=== PATIENT | female | born 1995 | race Caucasian/White ===

== ENCOUNTER 2017-07-09 16:55 | Observation (INO) ==
--- NOTE | 2017-07-09 19:31 | OB/GYN Progress Note ---
Date of Encounter: 07/09/17 Time of Encounter: 19:18 - Assessment and Plan (1) 38 weeks gestation of Current Visit: Yes Status: Acute (2) Pelvic pain affecting Current Visit: Yes Status: Acute Patient with rare uterine contraction noted on monitor. Cervix unchanged on serial cervical exams. NST reactive tracing. Discharged home with labor and when to return to triage precautions Qualifiers: Trimester: third trimester Qualified Code(s): O26.893 - Other specified related conditions, third trimester; R10.2 - Pelvic and perineal pain ; R10.2 - Pelvic and perineal pain Subjective - Subjective Interval history: 38+3 weeks gestation presents to triage with complaints of lower pelvic pain, decreased movement. States she has been having lower back and pelvic pain over the last few days, has increased this evening. Patient states she also feels she has had increased discharge and has been leaking fluid over the last couple days. Antepartum ROS: loss of fluid, contractions, no vaginal bleeding, no movement normal Objective - Vital Signs Vital Signs: Intake and Output 07/09/17 07/09/17 07/09/17 07:59 15:59 23:59 Other: Weight 55.5 kg Patient Weight 07/09/17 23:59 Weight 55.5 kg - Exam FHR: auscultation normal FHR comments: baseline 125 Auscultation: bilateral: normal Abdomen: Present: normal appearance, soft, gravid Uterus: Present: normal Cervical dilation: 50/-2
[2017-07-09 20:19] LABS: Amphetamine Screen,Urine Negative ng/mL (Cutoff=1000); Barbiturate Screen,Urine Negative ng/mL (Cutoff=200); Benzodiazepines Screen,Urine Negative ng/mL (Cutoff=200); Cannabinoid Screen,Urine Negative ng/mL (Cutoff = 50); Cocaine Screen,Urine Negative ng/mL (Cutoff= 300); Opiate Screen,Urine Negative ng/mL (Cutoff=300); Phencyclidine Screen,Urine Negative ng/mL (Cutoff=25)
== END 2017-07-09 20:09 | disposition home or self-care (01) ==
LOC: 1NENULAB
PROVIDERS: ADMIT Advanced Practice Midwife; ATTEND Advanced Practice Midwife

== ENCOUNTER 2017-07-12 18:47 | Inpatient (IN) ==
--- NOTE | 2017-07-12 17:16 | OB/GYN Progress Note ---
Date of Encounter: 07/12/17 Time of Encounter: 17:12 - Assessment and Plan (1) Encounter for suspected PROM, with rupture of membranes not found Current Visit: Yes Status: Acute Rupture membranes not found, nitrazine negative, ferning negative. However patient has made some cervical change from 4-5 cm Will admit patient to labor and delivery must start GBS prophylaxis, and induce labor at midnight when patient is 39+0. See H&P note (2) 38 weeks gestation of Current Visit: No Status: Acute Subjective - Subjective Interval history: 30s +6 weeks gestation presents to triage for evaluation of rupture of membranes. She states approximately 3 hours ago she was using the bathroom and felt a pop and has been trickling some fluid ever since the patient's sister encouraged her to come to triage evaluation, patient feels she is just leaking urine. Patient states decreased movement since this morning, denies vaginal bleeding Antepartum ROS: loss of fluid, contractions, no vaginal bleeding, no movement normal Objective - Vital Signs Vital Signs: Intake and Output 07/12/17 07/12/17 07/12/17 07:59 15:59 23:59 Other: Weight 55.338 kg Patient Weight 07/12/17 23:59 Weight 55.338 kg - Exam FHR: auscultation normal FHR comments: baseline 130 Abdomen: Present: normal appearance, soft, gravid Cervical dilation: /-2
[2017-07-12 17:48] LABS: Bilirubin,Urine Negative (Negative); Blood,Urine Negative (Negative); Clarity,Urine Cloudy (Clear); Color,Urine Yellow (Yellow); Glucose,Urine (UA) Normal (Normal); Ketones,Urine Negative (Negative); Leukocyte Esterase,Urine Large (Negative); Nitrite,Urine Negative (Negative); Protein,Urine Trace mg/dL (Neg-Trace); Specific Gravity,Urine 1.025 (1.010-1.025); Urobilinogen,Urine Normal (Normal)
[2017-07-12 17:55] LABS: Amphetamine Screen,Urine Negative ng/mL (Cutoff=1000); Barbiturate Screen,Urine Negative ng/mL (Cutoff=200); Benzodiazepines Screen,Urine Negative ng/mL (Cutoff=200); Cannabinoid Screen,Urine Negative ng/mL (Cutoff = 50); Cocaine Screen,Urine Negative ng/mL (Cutoff= 300); Opiate Screen,Urine Negative ng/mL (Cutoff=300); Phencyclidine Screen,Urine Negative ng/mL (Cutoff=25)
[2017-07-12 18:04] LABS: Bacteria,Urine Many per hpf (None-Few); Hyaline Casts,Urine None Seen per lpf (None-Few); Squamous Epithelial Cell,Urine Many per lpf (None-Few); WBC,Urine 15-30 per hpf (0-3)
[~2017-07-12 18:47] MED LIST: Famotidine 20 MG/2 ML VIAL IVP PRN; Naloxone 0.4 MG/ML INJ IVP PRN; Ondansetron 4 MG/2 ML VIAL IVP PRN; Penicillin G Potassium 5,000,000 UNIT in 0.9 % Sodium Chloride Mini Bag 100 ML IVPB ONE
[2017-07-12 19:12] LABS: Basophils # 0.1 K/mcL (0.0-0.2); Basophils % 0.4 %; Eosinophils # 0.1 K/mcL (0.0-0.6); Eosinophils % 0.8 %; Hematocrit 39.3 % (35.3-44.9); Hemoglobin 13.2 g/dL (11.5-15.4); Immature Granulocytes % 0.6 % (0-4); Lymphocytes % 14.5 %; Mean Corpuscular HGB Conc 33.6 g/dL (31.6-35.5); Mean Corpuscular Hemoglobin 28.6 pg (28.0-33.3); Mean Corpuscular Volume 85.2 fL (83.0-100.0); Mean Platelet Volume 10.2 fL (9.4-12.4); Monocytes # 0.8 K/mcL (0.0-1.3); Monocytes % 5.9 %; Neutrophils # 10.9 K/mcL (1.6-8.9); Platelet Count 237 K/mcL (140-400); Red Blood Count 4.61 M/mcL (3.82-4.97); Red Cell Distribution Width 13.7 % (11.5-14.5); Segmented Neutrophils % 77.8 %
--- NOTE | 2017-07-12 19:20 | OB/GYN History & Physical ---
Date of Encounter: 07/12/17 Time of Encounter: 19:19 Assessment and Plan (1) Active labor at term Current visit: Yes Status: Acute Plan: - admit to L&D - NST reactive - obtain CBC and drug screen - begin Penicillin for GBS prophylaxis - expectant management will consider augmenting with AROM or pitocin if no cervical change at midnight. Plan of care discussed with Dr. Hidalgo - anticipate (2) 38 weeks gestation of Current visit: No Status: Acute (3) NST (non-stress test) reactive Current visit: Yes Status: Acute History of Present Illness Chief complaint: active labor HPI: Ms. Maxwell is a 22 year old female 30 +6 weeks gestation presents to triage for evaluation of rupture of membranes. She states approximately 3 hours ago she was using the bathroom and felt a pop and has been trickling some fluid ever since the patient's sister encouraged her to come to triage evaluation, patient feels she is just leaking urine. Patient states decreased movement since this morning, denies vaginal bleeding. is complicated by limited care, hx of chlamydria, and GBS positive. Patient's last visit was 05/25/17, transfer of care from Dr. Miguel in [place]. labs: blood type B-, GBS+, RPR neg, HIV neg, Hep B neg Past Med Surg Social Fam HX - Past Medical History Source: patient, old records reviewed Medical history: migraine Psychiatric history: anxiety, depression - Past Surgical History Surgical History: no surgical history - Social History Smoking Status: Current every day smoker Packs per day: 5 Smokeless Tobacco Status: No Alcohol use: none Drug use: none - Family History Mother Family Member Ethnicity: Non- Living Status: Still Living Hx Family Cardiac Disorders: No Hx Family Respiratory Disorders: No Hx Family Cancer: No Hx Family GI Disorders: No Hx Family Genitourinary Disorders: No Hx Family Endocrine Disorder: Yes (diabetic) Hx Family Musculoskeletal Disorders: No Hx Family Neuromuscular Disorders: No Hx Family Neurologic Disorders: Yes (epilepsy) Hx Family HEENT Disorders: No Hx Family Autoimmune Disorders: No Hx Family Reproductive Disorders: No Hx Family Psychosocial Disorders: No Hx Family Medical Disorders: No Obstetrical History - Pregnancies : 2 Para: 1 Term: 0 : 0 Ab's: 0 Livin - History/Complications History/Complications: Total pregnancies 2. Total living children 1. # 1: 05/09/15, normal spontaneous vaginal delivery (), 38wks, female, 6lbs. Medications and Allergies 3 Allergy/AdvReac Type Severity Reaction Status Date / Time No Known Allergies Allergy Verified 07/12/17 19:24 Review of System OB All systems PM: reviewed and no additional remarkable complaints except as stated Exam - Constitutional Constitutional: well developed, no acute distress - HEENT HEENT: EOMI - Neck Neck exam: full ROM - Lungs Respiratory exam: CTAB - Cardiovascular Cardiovascular exam: RRR - Abdomen Abdomen: Present: bowel sounds normal - Extremities Extremities exam: full ROM - Vagina Vagina: Present: normal moisture - Cervix Dilation: 4 Effacement: 80 Station: -2 - Uterus Uterus exam: Present: normal size Results Result Diagrams: 07/12/17 19:00 Abnormal lab results WBC 14.0 K/mcL (4.3-11.1) H 07/12/17 19:00 Neutrophils # 10.9 K/mcL (1.6-8.9) H 07/12/17 19:00 Urine Clarity Cloudy (Clear) A 07/12/17 17:20 Ur Leukocyte Esterase Large (Negative) H 07/12/17 17:20 Urine Microscopic RBC 3-5 per hpf (0-3) H 07/12/17 17:20 Urine Microscopic WBC 15-30 per hpf (0-3) H 07/12/17 17:20 Ur Squamous Epith Cells Many per lpf (None-Few) H 07/12/17 17:20 Urine Bacteria Many per hpf (None-Few) H 07/12/17 17:20 All other labs normal. - VTE Reasons for not Prescribing Prophylaxis: Treatment not Indicated - Low risk for VTE
[2017-07-12] MEDS: Ringers Solution, Lactated 1,000 ML IVC SCH (19:24)
--- NOTE | 2017-07-12 19:24 | Anesthesia Evaluation PreOp ---
Date of Encounter: 07/12/17 Time of Encounter: 19:20 - Past History Planned Operation: naveen Cardiac History: Denies any Significant Hx Pulmonary History: Smoker, Pack/yr (12) NIP WRAPPER History: Denies Any Significant HX Other Medical History: GERD Anesthesia History: No Prior Anesthetic Complications, Past Anesthesia (naveen) : Yes Test: Positive Alcohol Use: none Drug use: none - Meds/Allergy Pre-op Review Medications Reviewed: Yes Allergies Reviewed: Yes Beta Blockers on Current Med List: No Anesthesia Results - Labs 07/12/17 19:00 Anesthesia Exam 108/69 77 15 fht 122 Height: 4'11" Weight: 55 NPO (# of Hours): 5 Pain Scale: 5 Pain Scale Used: Numeric (1 - 10) - HEENT Pupil (Motor): Pupils equal Mallampati: II Teeth: Normal Oral Opening: Greater than 3 - NIP WRAPPER LOC: Oriented NIP WRAPPER Motor: Normal RUE, Normal LUE, Normal RLE, Normal LLE, Normal Face NIP WRAPPER Sensory: Normal: RUE, LUE, RLE, LLE, Face - Cardiac Rhythm: Regular Murmur: None - Pulmonary Breath Sounds: bilateral Clear Respiratory Effort: Symmetrical Anesthesia Assess/Plan ASA Score: 2 Modified Tennyson Scale for Level of Consciousness: Cooperative, oriented, and tranquil Anesthetic Plan: Regional (risk discussed, questions answered, consented) Autologous Blood: No Monitoring Plan: Standard Monitors Recovery Plan: Other
[2017-07-12] MEDS ORDERED: Bupivacaine-MPF 0.25% 10 ML VIAL EP ONE (19:25)
[2017-07-12] MEDS ORDERED: *HR* FentaNYL (PF) 100 MCG/2 ML VIAL EP ONE (19:25)
[2017-07-12] MEDS ORDERED: Epidural Premix (fent/bupiv) 110 ML EP SCH (19:30)
[2017-07-12] MEDS ORDERED: Oxytocin 20 units/ LR 1000 mL 20 UNIT/1,000 ML BAG IVC SCH (21:30)
[2017-07-12] MEDS: Penicillin G Potassium 2,500,000 UNIT in 0.9 % Sodium Chloride 100 ML IVPB SCH (23:08)
[2017-07-13] MEDS: Ringers Solution, Lactated 1,000 ML IVC SCH (01:37)
[2017-07-13] MEDS ORDERED: *HR* Ropivacaine/PF 0.2% 20 ML VIAL ONE (02:28)
[2017-07-13] MEDS ORDERED: *HR* FentaNYL (PF) 100 MCG/2 ML VIAL ONE (02:28)
[2017-07-13] MEDS ORDERED: Epidural Premix (fent/bupiv) 110 ML EP ONE (02:29)
--- NOTE | 2017-07-13 03:04 | Anesthesia Procedures ---
Date of Encounter: 07/13/17 Time of Encounter: 03:02 Procedures: Anesthesia - Epidural/Spinal Patient ID/Chart reviewed: Yes Patient examined: Yes OB Eval: Gestational age: 39 OB Eval: : 2 OB Eval: Hx Para: 1 OB Eval: Dilated at (cm): 5 OB Eval: Contractions: Non-stressed pattern Consent Obtained: Yes Supplemental Oxygen: None/Room Air Site Prep: Aseptic Technique, Sterile prep and drape, Povidone-Iodine 1% Patient position: upright Local Anesthetic: Lidocaine 1% Amount of Local Anesthetic used: 3 Touhy Needle Gauge: 18 Touhy Needle Depth (cm): 5 Catheter Depth at Skin (cm): 15 Test Dose (1.5% Lido + Epi): Volume given (mls): 3 Test Dose Result: Negative Loading Dose: Fentanyl (mcg): 100 Loading Dose: Other: ropivicaine 0.2% 10cc Loading Dose Administered: Thru Touhy Needle Infusion Med: 0.125% Bupivacaine w/ 2 mcg/ml Fentanyl Infusion Rate (mls/hr): 14 (pcea 5 cc q 30") Catheter Secured in Place: Tegaderm Interspace Used: L2-L3 Loss of Resistance (KYLEE): Yes Blood: No CSF: No Paresthesia: No Procedure: aseptic, tolerated well efeective Vitals + FHT's: 110/58 82 fht 126
[2017-07-13] MEDS: Penicillin G Potassium 2,500,000 UNIT in 0.9 % Sodium Chloride 100 ML IVPB SCH ×2 (03:10→07:05)
--- NOTE | 2017-07-13 03:54 | OB Labor Progress Note ---
Date of Encounter: 07/13/17 Time of Encounter: 03:52 Labor Progress Note - Subjective Subjective: Patient comfortable with epidural - Cervix Cervix: 5-6/80/-1 - Heart Tones Heart Tones: 125/moderate/positive accelerations/negative decelerations - Sedan Sedan: Every 2-3 - Interventions Interventions: AROM for clear fluid - Plan Plan: Continue Pitocin per policy Penicillin for GBS Anticipate
[2017-07-13] MEDS ORDERED: Terbutaline 1 MG/ML VIAL SQ ONE (06:48)
[2017-07-13] MEDS ORDERED: Metoclopramide 10 MG/2 ML VIAL IVP PRN (06:49)
--- NOTE | 2017-07-13 08:19 | OB/GYN Procedure Note ---
Delivery - Delivery Date: 07/13/17 Provider: Nimco Avila (Gary Núñez) Intrapartum events: none Delivery induction: AROM, oxytocin Delivery monitor: external FHT, external uterine Anesthesia: epidural Estimated Blood Loss: 100 - Infant (s) A Infant Delivery Date: 07/13/17 Delivery Time: 07:17 Presentation: vertex Position: OA Route of delivery: Gender: Male Viability: Viable Pounds: 6 Ounces: 5 Weight Gram: 2.85 kg at 1 minute: 8 at 5 mins: 9 Shoulder Dystocia: not encountered Shoulder Dystocia Maneuvers: Tomas maneuver Specimens collected: cord blood Placenta: spontaneous Cord: nuchal cord, 3 umbilical vessels - Repair Episiotomy: none Laceration Description: None - Complications Delivery complications: none Delivery comments: Patient admitted with labor, minimal cervical change at midnight started Pitocin , followed by AROM, progressed to complete and began maternal during down efforts of liveborn male. Vertex delivered OA, turtle sign noted, patient legs into Tomas pushed to delivery of the anterior shoulder, rest of body easily followed. Despite delay no shoulder dystocia encountered. Infant placed on maternal abdomen for drying and stimulation. Apgars 8/9. Enter delivered spontaneously (Leyva), complete on inspection. Fundus massaged until firm, Pitocin started per policy, EBL 100. Mother and infant left bonding and skin to skin. Delivery assisted by Dr. Pooja Vega D.O. PGY 1 - Disposition Mom disposition: stable in LDR [place] disposition: stable in LDR
[2017-07-13] MEDS ORDERED: Ibuprofen 600 MG TABLET PO PRN (16:07)
[2017-07-13] MEDS ORDERED: Rho Immune Globulin 1,500 UNIT SYRINGE IM PRN (16:48)
[2017-07-13] MEDS ORDERED: Measles/Mumps/Rubella Vacc 0.5 ML VIAL SQ PRN (16:48)
[2017-07-13] MEDS ORDERED: Oxytocin 20 units/ LR 1000 mL 20 UNIT/1,000 ML BAG IVC SCH (16:48)
[2017-07-13] MEDS: Acetaminophen 325 MG TABLET PO PRN (21:15)
[2017-07-14] MEDS: Ibuprofen 600 MG TABLET PO PRN ×3 (00:09→15:45)
[2017-07-14 05:56] LABS: Basophils % 0.4 %; Eosinophils # 0.3 K/mcL (0.0-0.6); Eosinophils % 3.3 %; Hematocrit 35.1 % (35.3-44.9); Immature Granulocytes % 1.1 % (0-4); Lymphocytes # 2.8 K/mcL (0.6-4.6); Lymphocytes % 27.3 %; Mean Corpuscular HGB Conc 34.2 g/dL (31.6-35.5); Mean Corpuscular Hemoglobin 28.8 pg (28.0-33.3); Mean Corpuscular Volume 84.4 fL (83.0-100.0); Mean Platelet Volume 10.5 fL (9.4-12.4); Monocytes # 0.6 K/mcL (0.0-1.3); Neutrophils # 6.4 K/mcL (1.6-8.9); Nucleated Red Blood Cells 0.3 /100 WBC (0); Platelet Count 187 K/mcL (140-400); Red Blood Count 4.16 M/mcL (3.82-4.97); Red Cell Distribution Width 13.6 % (11.5-14.5); Segmented Neutrophils % 61.9 %
--- NOTE | 2017-07-14 06:56 | Discharge Summary ---
Date of Encounter: 07/14/17 Time of Encounter: 06:54 - Discharge Diagnosis (1) Status post normal vaginal delivery Priority: Primary Status: Acute Comments: Continue routine care Anticipate discharge today Follow up in 4 weeks - Discharge Medications Prescriptions: Ibuprofen [Motrin] 600 mg PO Q6HR PRN #60 tablet PRN Reason: Cramping Home Medications: Docusate [Colace] 100 mg PO BID capsule 07/14/17 [Rx] Ibuprofen [Motrin] 600 mg PO Q6HR PRN #60 tablet 07/14/17 [Rx] Vit/FA 1 each PO DAILY tablet 07/14/17 [Rx] Allergies/Adverse Reactions: 3 Allergy/AdvReac Type Severity Reaction Status Date / Time No Known Allergies Allergy Verified 07/12/17 19:24 Data Procedures and tests throughout hospitalization: Laboratory Tests 07/12/17 07/12/17 07/12/17 17:20 17:20 19:00 WBC 14.0 H RBC 4.61 Hgb 13.2 Hct 39.3 MCV 85.2 MCH 28.6 MCHC 33.6 RDW 13.7 Plt Count 237 MPV 10.2 Immature Gran % 0.6 Seg Neutrophils % 77.8 Lymphocytes % 14.5 Monocytes % 5.9 Eosinophils % 0.8 Basophils % 0.4 Neutrophils # 10.9 H Lymphocytes # 2.0 Monocytes # 0.8 Eosinophils # 0.1 Basophils # 0.1 Nucleated RBCs/100 WBC Urine Color Yellow Urine Clarity Cloudy A Urine pH 7.0 Ur Specific Celestine 1.025 Urine Protein Trace Urine Glucose (UA) Normal Urine Ketones Negative Urine Blood Negative Urine Nitrite Negative Urine Bilirubin Negative Urine Urobilinogen Normal Ur Leukocyte Esterase Large H Urine Microscopic RBC 3-5 H Urine Microscopic WBC 15-30 H Ur Squamous Epith Cells Many H Urine Bacteria Many H Hyaline Casts None Seen Ur Culture Indicated? NO. Urine Opiates Screen Negative Ur Barbiturates Screen Negative Ur Phencyclidine Scrn Negative Ur Amphetamines Screen Negative U Benzodiazepines Scrn Negative Urine Cocaine Screen Negative U Marijuana (THC) Screen Negative Screen Baby's Blood Type Mother's Blood Type Rhogam Indicated Rhogam Req for Mother 07/13/17 07/14/17 08:27 05:42 WBC 10.3 RBC 4.16 Hgb 12.0 Hct 35.1 L MCV 84.4 MCH 28.8 MCHC 34.2 RDW 13.6 Plt Count 187 MPV 10.5 Immature Gran % 1.1 Seg Neutrophils % 61.9 Lymphocytes % 27.3 Monocytes % 6.0 Eosinophils % 3.3 Basophils % 0.4 Neutrophils # 6.4 Lymphocytes # 2.8 Monocytes # 0.6 Eosinophils # 0.3 Basophils # 0.0 Nucleated RBCs/100 WBC 0.3 H Urine Color Urine Clarity Urine pH Ur Specific Celestine Urine Protein Urine Glucose (UA) Urine Ketones Urine Blood Urine Nitrite Urine Bilirubin Urine Urobilinogen Ur Leukocyte Esterase Urine Microscopic RBC Urine Microscopic WBC Ur Squamous Epith Cells Urine Bacteria Hyaline Casts Ur Culture Indicated? Urine Opiates Screen Ur Barbiturates Screen Ur Phencyclidine Scrn Ur Amphetamines Screen U Benzodiazepines Scrn Urine Cocaine Screen U Marijuana (THC) Screen Screen NEGATIVE Baby's Blood Type B RH POSITIVE Mother's Blood Type B RH NEGATIVE Rhogam Indicated YES Rhogam Req for Mother 1 Labs on day of discharge: Labs from last 24 hours 07/14/17 07/13/17 05:42 08:27 WBC 10.3 RBC 4.16 Hgb 12.0 Hct 35.1 L MCV 84.4 MCH 28.8 MCHC 34.2 RDW 13.6 Plt Count 187 MPV 10.5 Immature Gran % 1.1 Seg Neutrophils % 61.9 Lymphocytes % 27.3 Monocytes % 6.0 Eosinophils % 3.3 Basophils % 0.4 Neutrophils # 6.4 Lymphocytes # 2.8 Monocytes # 0.6 Eosinophils # 0.3 Basophils # 0.0 Nucleated RBCs/100 WBC 0.3 H Screen NEGATIVE Baby's Blood Type B RH POSITIVE Mother's Blood Type B RH NEGATIVE Rhogam Indicated YES Rhogam Req for Mother 1 Date of admission: 07/12/17 18:47 Primary care physician: PCP NONE Consults: 07/13/17 16:48 Consult to Filter Pulp Washer [CONS] Routine Reason for SW Consult: noncompliance with care Discharging clinician: Kady Costello Anticipated date of discharge: 07/14/17 - Patient Status Disposition: Home, Self-Care Condition: Good Functional capacity at discharge: independent ambulation - Discharge Instructions Follow Up With: NONE,PCP [Primary Care Provider] - Nimco Avila CNM [Advanced Practice Nurse] - - Diet and Activity Activity: resume usual activities as tolerated Diet: regular diet Hospital Course Procedures: Spontaneous vaginal delivery Reason for admission: active labor Delivery: Episiotomy: none Laceration: none Other procedures: none complications: none Discharge diagnosis: IUP at term delivered baby: male Hospital course: Delivery Date: 07/13/17 Provider: Nimco Avila) Intrapartum events: none Delivery induction: AROM, oxytocin Delivery monitor: external FHT, external uterine Anesthesia: epidural Estimated Blood Loss: 100 - Infant (s) Infant A Infant Delivery Date: 07/13/17 Delivery Time: 07:17 Presentation: vertex Position: OA Route of delivery: Gender: Male Viability: Viable Pounds: 6 Ounces: 5 Weight Gram: 2.85 kg at 1 minute: 8 at 5 mins: 9 Shoulder Dystocia: not encountered Shoulder Dystocia Maneuvers: Tomas maneuver Specimens collected: cord blood Placenta: spontaneous Cord: nuchal cord, 3 umbilical vessels - Repair Episiotomy: none Laceration Description: None - Complications Delivery complications: none Time Attestation: Total time spent providing and/or coordinating discharge services: Time Spent: Less than 30 minutes Exam - Constitutional Vitals: Temp Pulse Resp BP Pulse Ox 98.2 F 61 14 108/69 99 07/14/17 02:43 07/14/17 02:43 07/14/17 02:43 07/14/17 02:43 07/14/17 02:43 General appearance IM: cooperative, A&O X 3, pleasant, no acute distress - Respiratory Respiratory exam: Present: CTAB - Cardiovascular Cardiovascular exam IM: Present: RRR, +S1, +S2 - GI/Abdominal GI/Abdominal exam IM: normal bowel sounds, soft - Rectal Rectal exam: deferred - Uterine Tone: Firm Uterus Position: 2 Fingers Below Umbilicus - Extremities Exam Extremities exam IM: Present: full ROM, normal capillary refill, normal inspection - Neurological Exam Neurological exam: normal gait, oriented X3
[2017-07-14 08:58] VITALS: BP 99/63
[2017-07-14] MEDS ORDERED: Prenatal Vit/FA 1 EACH TABLET PO SCH (09:00)
[2017-07-14] MEDS: Acetaminophen 325 MG TABLET PO PRN (12:04)
== END 2017-07-14 19:23 | disposition home or self-care (01) | DRG 775 ==
LOC: 1NENULAB → 1NENUOBS 07-13 10:16
PROVIDERS: ADMIT Obstetrics & Gynecology; ATTEND Obstetrics & Gynecology

== ENCOUNTER 2020-07-16 08:35 | Inpatient (IN) ==
[2020-07-16 09:30] LABS: Bilirubin,Urine Negative (Negative); Blood,Urine Large (Negative); Clarity,Urine Turbid (Clear); Color,Urine Yellow (Yellow); Glucose,Urine (UA) Normal (Normal); Ketones,Urine Negative (Negative); Leukocyte Esterase,Urine Negative (Negative); Mucus,Urine Many per lpf (None-Few); Nitrite,Urine Negative (Negative); Protein,Urine 70 mg/dL (Neg-Trace); RBC,Urine TNTC per hpf (0-3); Specific Gravity,Urine > 1.030 (1.010-1.025); Squamous Epithelial Cell,Urine Few per hpf (None-Few); Urobilinogen,Urine Normal (Normal); WBC,Urine 0-3 per hpf (0-3)
[2020-07-16 09:33] LABS: Amphetamine Screen,Urine Negative ng/mL (Cutoff=1000); Barbiturate Screen,Urine Negative ng/mL (Cutoff=200); Benzodiazepines Screen,Urine Negative ng/mL (Cutoff=200); Cannabinoid Screen,Urine Positive ng/mL (Cutoff = 50); Cocaine Screen,Urine Negative ng/mL (Cutoff= 300); Opiate Screen,Urine Negative ng/mL (Cutoff=300); Phencyclidine Screen,Urine Negative ng/mL (Cutoff=25)
[2020-07-16 09:33] LABS: Basophils # 0.1 K/mcL (0.0-0.2); Eosinophils # 0.2 K/mcL (0.0-0.6); Eosinophils % 3.9 %; Hematocrit 45.8 % (35.3-44.9); Hemoglobin 15.4 g/dL (11.5-15.4); Immature Granulocytes % 0.4 % (0-4); Lymphocytes # 1.3 K/mcL (0.6-4.6); Lymphocytes % 27.3 %; Mean Corpuscular HGB Conc 33.6 g/dL (31.6-35.5); Mean Corpuscular Hemoglobin 28.9 pg (28.0-33.3); Mean Corpuscular Volume 85.9 fL (83.0-100.0); Monocytes # 0.3 K/mcL (0.0-1.3); Monocytes % 6.5 %; Platelet Count 322 K/mcL (140-400); Red Blood Count 5.33 M/mcL (3.82-4.97); Red Cell Distribution Width 12.3 % (11.5-14.5); Segmented Neutrophils % 60.9 %; White Blood Count 4.9 K/mcL (4.3-11.1)
[2020-07-16 09:48] LABS: Acetaminophen < 10 mcg/mL (10-20); Alanine Aminotransferase 19 Units/L (7-52); Albumin/Globulin Ratio 1.7 (1.1-2.2); Alkaline Phosphatase 57 Units/L (34-104); Aspartate Amino Transferase 17 Units/L (13-39); BUN/Creatinine Ratio 12 (6-26); Bilirubin,Direct 0.2 mg/dL (0.0-0.2); Bilirubin,Indirect 0.7 mg/dL (0.0-1.0); Bilirubin,Total 0.9 mg/dL (0.3-1.0); Blood Urea Nitrogen 9 mg/dL (6-20); Calcium 10.6 mg/dL (8.6-10.3); Carbon Dioxide 23 mEq/L (23-29); Chloride 105 mEq/L (98-107); Chol/HDL Ratio 2.4 (0-4.9); Cholesterol 106 mg/dL (< 200); Ethanol < 10 mg/dL (Less than 10); Globulin 2.9 g/dL (2.4-3.5); Glucose 95 mg/dL (70-105); HDL Cholesterol 44 mg/dL (40-59); LDL Cholesterol,Calculated 51 mg/dL (< 100); Lipase 40 Units/L (11-82); Osmolality,Calculated 284 (280-300); Potassium 3.7 mEq/L (3.5-5.1); Salicylate < 2.5 mg/dL (15.0-30.0); Sodium 138 mEq/L (136-145); Total Protein 7.9 g/dL (6.4-8.9); Triglycerides 56 mg/dL (< 150); eGFR For African Americans > 60 (> 60); eGFR For Non-African Americans > 60 (> 60)
[2020-07-16 09:58] LABS: Magnesium 2.1 mg/dL (1.6-2.6)
[2020-07-16 10:23] LABS: Estimated Average Glucose 88 mg/dl; Hemoglobin A1C 4.7 %
[2020-07-16 10:57] LABS: Adenovirus Not Detected (Not Detect); Bordetella Pertussis Not Detected (Not Detect); Chlamydophila pneumoniae Not Detected (Not Detect); Coronavirus 229E Not Detected (Not Detect); Coronavirus HKU1 Not Detected (Not Detect); Coronavirus NL63 Not Detected (Not Detect); Coronavirus OC43 Not Detected (Not Detect); Human Metapneumovirus Not Detected (Not Detect); Human Rhinovirus/Enterovirus DETECTED (Not Detect); Influenza A Subtype 2009 H1 Not Detected (Not Detect); Influenza B Not Detected (Not Detect); Mycoplasma pneumoniae Not Detected (Not Detect); Parainfluenza Virus 1 Not Detected (Not Detect); Parainfluenza Virus 2 Not Detected (Not Detect); Parainfluenza Virus 3 Not Detected (Not Detect); Parainfluenza Virus 4 Not Detected (Not Detect); Respiratory Syncytial Virus Not Detected (Not Detect); SARS-CoV-2 Not Detected (Not Detect)
[2020-07-16] MEDS ORDERED: *HR* HYDROcodone/Acet 5/325 mg TABLET PO PRN (13:15)
[2020-07-16] MEDS ORDERED: Acetaminophen 325 MG TABLET PO PRN (13:15)
[2020-07-16] MEDS ORDERED: Naloxone 0.4 MG/ML INJ IVP PRN (13:15)
[2020-07-16] MEDS ORDERED: Ipratropium/Albuterol Neb 3 ML IH PRN (18:40)
[2020-07-16] MEDS ORDERED: Melatonin 3 MG TABLET PO PRN (18:51)
[2020-07-16] MEDS ORDERED: Benzonatate 100 MG CAPSULE PO PRN (18:51)
[2020-07-16] MEDS: Ondansetron 4 MG/2 ML VIAL IVP PRN (20:22)
[2020-07-16] MEDS: Mirtazapine 15 MG TABLET PO SCH (20:22)
[2020-07-16] MEDS: Ringers Solution, Lactated 1,000 ML IVC SCH (20:23)
[2020-07-16] MEDS ORDERED: *HR* Metoprolol 5 MG/5 ML VIAL IVP ONE (21:12)
[2020-07-17 05:49] LABS: Basophils % 0.5 %; Eosinophils # 0.4 K/mcL (0.0-0.6); Eosinophils % 6.3 %; Hemoglobin 15.2 g/dL (11.5-15.4); Immature Granulocytes % 0.3 % (0-4); Lymphocytes # 2.4 K/mcL (0.6-4.6); Lymphocytes % 41.6 %; Mean Corpuscular HGB Conc 33.8 g/dL (31.6-35.5); Mean Corpuscular Hemoglobin 29.6 pg (28.0-33.3); Mean Corpuscular Volume 87.5 fL (83.0-100.0); Monocytes # 0.5 K/mcL (0.0-1.3); Monocytes % 7.7 %; Neutrophils # 2.6 K/mcL (1.6-8.9); Platelet Count 278 K/mcL (140-400); Red Blood Count 5.14 M/mcL (3.82-4.97); Red Cell Distribution Width 12.2 % (11.5-14.5); Segmented Neutrophils % 43.6 %; White Blood Count 5.9 K/mcL (4.3-11.1)
[2020-07-17 05:50] LABS: INR 1.1; Prothrombin Time 13.2 Seconds (9.4-12.1)
[2020-07-17 06:09] LABS: Alanine Aminotransferase 16 Units/L (7-52); Albumin 4.4 g/dL (3.5-5.7); Albumin/Globulin Ratio 1.8 (1.1-2.2); Alkaline Phosphatase 52 Units/L (34-104); Aspartate Amino Transferase 14 Units/L (13-39); BUN/Creatinine Ratio 14 (6-26); Bilirubin,Total 0.4 mg/dL (0.3-1.0); Blood Urea Nitrogen 11 mg/dL (6-20); Calcium 9.7 mg/dL (8.6-10.3); Carbon Dioxide 25 mEq/L (23-29); Chloride 106 mEq/L (98-107); Globulin 2.5 g/dL (2.4-3.5); Glucose 78 mg/dL (70-105); Magnesium 2.1 mg/dL (1.6-2.6); Osmolality,Calculated 284 (280-300); Phosphorous 4.6 mg/dL (2.7-4.5); Potassium 3.7 mEq/L (3.5-5.1); Sodium 138 mEq/L (136-145); Total Protein 6.9 g/dL (6.4-8.9); eGFR For African Americans > 60 (> 60); eGFR For Non-African Americans > 60 (> 60)
[2020-07-17 06:18] LABS: Thyroid Stimulating Hormone 0.398 mcIU/mL (0.340-5.600)
[2020-07-17] MEDS: Nicotine 14 MG PATCH.TD24 TD SCH (07:54)
[2020-07-17] MEDS: Multivit/Ca/Min/Fe/FA 1 TAB TABLET PO SCH (07:54)
[2020-07-17] MEDS: Ondansetron 4 MG/2 ML VIAL IVP PRN ×3 (08:58→21:53)
[2020-07-17] MEDS: Ringers Solution, Lactated 1,000 ML IVC SCH (18:18)
[2020-07-17] MEDS: Mirtazapine 15 MG TABLET PO SCH (22:46)
[2020-07-18] MEDS: Multivit/Ca/Min/Fe/FA 1 TAB TABLET PO SCH (08:17)
[2020-07-18] MEDS: Nicotine 14 MG PATCH.TD24 TD SCH (08:19)
[2020-07-18] MEDS: Ondansetron 4 MG/2 ML VIAL IVP PRN ×2 (08:25→18:54)
[2020-07-18] MEDS ORDERED: Simethicone 80 MG TAB.CHEW PO PRN (10:46)
[2020-07-18] MEDS ORDERED: Isovue-370 500 ML BOTTLE IVP ONE (12:09)
[2020-07-18] MEDS: Ringers Solution, Lactated 1,000 ML IV SCH ×2 (12:46→22:48)
[2020-07-18 17:11] LABS: Bacteria,Urine Few per hpf (None-Few); Bilirubin,Urine Negative (Negative); Blood,Urine Moderate (Negative); Clarity,Urine Clear (Clear); Color,Urine Yellow (Yellow); Glucose,Urine (UA) Normal (Normal); Ketones,Urine Negative (Negative); Leukocyte Esterase,Urine Negative (Negative); Mucus,Urine Few per lpf (None-Few); Nitrite,Urine Negative (Negative); PH,Urine 6.5 pH Units (5.0-8.0); Protein,Urine Negative (Neg-Trace); RBC,Urine 0-3 per hpf (0-3); Specific Gravity,Urine 1.013 (1.010-1.025); Squamous Epithelial Cell,Urine Few per hpf (None-Few); Urobilinogen,Urine Normal (Normal)
[2020-07-18] MEDS: Mirtazapine 15 MG TABLET PO SCH (20:07)
[2020-07-18] MEDS ORDERED: *HR* Promethazine 25 MG/ML VIAL IM ONE (20:24)
[2020-07-19] MEDS: Ringers Solution, Lactated 1,000 ML IV SCH (04:32)
[2020-07-19] MEDS: Nicotine 14 MG PATCH.TD24 TD SCH (07:42)
[2020-07-19] MEDS: Multivit/Ca/Min/Fe/FA 1 TAB TABLET PO SCH (07:48)
[2020-07-19] MEDS: Ondansetron 4 MG/2 ML VIAL IVP PRN ×3 (07:49→21:39)
[2020-07-19] MEDS: Mirtazapine 15 MG TABLET PO SCH (21:40)
[2020-07-20] MEDS: Multivit/Ca/Min/Fe/FA 1 TAB TABLET PO SCH (10:23)
[2020-07-20] MEDS: Ondansetron 4 MG/2 ML VIAL IVP PRN (10:23)
[2020-07-20] MEDS: Nicotine 14 MG PATCH.TD24 TD SCH (10:24)
[2020-07-20 10:31] VITALS: BP 117/62
[2020-07-20 11:32] LABS: Magnesium 2.1 mg/dL (1.6-2.6); Potassium 3.4 mEq/L (3.5-5.1)
[2020-07-21 08:00] LABS: Tissue Transglutaminase IgA <2 U/mL (0-3)
[2020-07-22 09:34] LABS: Saccharomyces cerevisiae IgA 1.9 Units (0.0-24.9); Tissue Transglutaminase IgG 4 U/mL (0-5)
== END 2020-07-20 14:57 | disposition home or self-care (01) | DRG 246 ==
LOC: EMEROOARM 08:35 → 3BNU 08:35 → SUATTDRO 13:09 → 3BNU 15:32 → SUATTDRO 07-17 12:48
PROVIDERS: ADMIT Internal Medicine; ATTEND Internal Medicine